=== PATIENT | male | born 1955 | race Caucasian/White ===

== ENCOUNTER → 2020-06-09 | Outpatient (CLI) | payer SELFPAY ==
[~2020-06-09] MED LIST: MORP60TA3 OR; OXYCODONE; OXYCONTIN; PERC5TAB8 OR; PERC7.5T11 PO; SOMA350T PO; [UNRECOGNIZED DRUG - OTHER]; albuterol inhaler
== END ==
LOC: M LABSMTC 10:30
PROVIDERS: ATTEND Pediatrics
DX: Z20.828 Contact with and (suspected) exposure to other viral communicable diseases (principal)

== ENCOUNTER 2021-11-23 11:35 | Inpatient (IN) | payer MEDICARE, SELFPAY ==
[~2021-11-23] VITALS: Ht 157.5 cm; Wt 70.5 kg
[2021-11-23] MEDS ORDERED: methylPREDNISolone 125MG 2ML VIAL IV ONE (12:10)
[2021-11-23] MEDS ORDERED: hydrALAZINE 20MG/ML 1ML VIAL (J0360 PER 20MG) IV STA (12:12)
[2021-11-23] MEDS: IPRATROPIUM 0.5MG/ALBUTEROL 2.5MG INH SOL UD 3ML (DUONEB) NEB PRN ×3 (12:32→12:46)
[2021-11-23 12:38] LABS: BASO % 0.1 % (0.0-1.0); EOS % 0.1 % (0.0-3.0); HEMATOCRIT 50.4 % (42.0-52.0); HEMOGLOBIN 16.6 g/dl (13.5-17.5); LYMPH # 0.8 10^3/uL (1.5-5.0); LYMPH % 11.9 % (24.0-44.0); MEAN CORPUSCULAR HEMOGLOBIN 29.1 pg (27.0-33.0); MEAN CORPUSCULAR HGB CONC 32.9 g/dl (32.0-36.5); MEAN CORPUSCULAR VOLUME 88.3 fl (80.0-96.0); MONO # 0.7 10^3/uL (0.0-0.8); MONO % 9.5 % (2.0-8.0); NEUTROPHILS # 5.4 10^3/uL (1.5-8.5); NEUTROPHILS % 78.1 % (36.0-66.0); PLATELET COUNT, AUTOMATED 154 10^3/uL (150-450); RED BLOOD COUNT 5.71 10^6/uL (4.30-6.10); WHITE BLOOD COUNT 6.9 10^3/uL (4.0-10.0)
[2021-11-23 12:38] LABS: ABG BASE EXCESS 0.4 (-2.0-2.0); ABG HCO3 25.6 MEQ/L (22.0-26.0); ABG O2 SATURATION 99.5 % (95.0-99.0); ABG PARTIAL PRESSURE CO2 43.1 mmHg (35.0-45.0); ABG PARTIAL PRESSURE O2 232.8 mmHg (75.0-100.0); ABG STANDARD HCO3 24.9 MEQ/L (22.0-26.0); ABG TOTAL CO2 26.9 MEQ/L (23.0-31.0); ABG pH (ARTERIAL) 7.391 UNITS (7.350-7.450)
[2021-11-23 13:06] LABS: ALBUMIN 3.3 GM/DL (3.2-5.2); ALT/SGPT 30 U/L (12-78); BILIRUBIN,DIRECT 0.3 MG/DL (0.0-0.2); BILIRUBIN,TOTAL 0.5 MG/DL (0.2-1.0); BLOOD UREA NITROGEN 9 MG/DL (7-18); CALCIUM LEVEL 8.9 MG/DL (8.8-10.2); CARBON DIOXIDE LEVEL 28 MEQ/L (21-32); CHLORIDE LEVEL 103 MEQ/L (98-107); CREATININE FOR GFR 0.74 MG/DL (0.70-1.30); GLOMERULAR FILTRATION RATE > 60.0 (>49); GLUCOSE, FASTING 106 MG/DL (70-100); NT-PRO BNP 101 PG/ML (<125); POTASSIUM SERUM 4.2 MEQ/L (3.5-5.1); SODIUM LEVEL 139 MEQ/L (136-145); TOTAL PROTEIN 6.9 GM/DL (6.4-8.2)
[2021-11-23] MEDS ORDERED: ALBUTEROL SULFATE 2.5 MG/0.5 ML INH NEB SOLN NEB ONE (13:50)
[2021-11-23] MEDS ORDERED: COMBIVENT RESPIMAT 100-20MCG INHALER 4GM INH ONE (14:05)
[2021-11-23] MEDS ORDERED: ACETAMINOPHEN TAB 650MG DOSE (2X325MG) PO PRN (14:45)
[2021-11-23] MEDS ORDERED: ALBU8.5H INH (14:45)
[2021-11-23] MEDS ORDERED: MOM 30ML SUSPENSION UDC PO PRN (14:45)
[2021-11-23] MEDS ORDERED: MAALOX 30 ML SUSP *UDC PO PRN (14:45)
[2021-11-23] MEDS ORDERED: IPRATROPIUM 0.5MG/ALBUTEROL 2.5MG INH SOL UD 3ML (DUONEB) NEB PRN (14:45)
[2021-11-23] MEDS ORDERED: HOME MED LIST COMPLETE! XX SCH (14:50)
[2021-11-23] MEDS ORDERED: hydrALAZINE 20MG/ML 1ML VIAL (J0360 PER 20MG) IV SCH ×2 (15:00→18:00)
[2021-11-23] MEDS ORDERED: PILL CUTTER 1 EACH XX PRN (15:00)
[2021-11-23] MEDS ORDERED: ISOVUE-370 76% 100ML VIAL As Ordered ONE (15:03)
[2021-11-23 16:06] LABS: INR 0.87; PROTHROMBIN TIME 12.2 SECONDS (12.7-14.5)
[2021-11-23 16:07] LABS: PARTIAL THROMBOPLASTIN TIME 28.1 SECONDS (25.9-37.0)
[2021-11-23 16:09] LABS: D-DIMER QUANT 438.89 ng/ml (<500)
[2021-11-23 16:18] LABS: C REACTIVE PROTEIN QUANTITATIV 8.73 MG/DL (0.00-0.30)
[2021-11-23 16:21] LABS: CK-MB VALUE MASS 2.6 NG/ML (<3.6); MB/CK RELATIVE INDEX 3.25 (< OR =4)
[2021-11-23] MEDS: methylPREDNISolone 125MG 2ML VIAL IV SCH (17:57)
[2021-11-23] MEDS ORDERED: REMDESIVIR 200 MG in NS 250 ML IV ONE (18:00)
[2021-11-23 18:23] LABS: CK-MB VALUE MASS 3.8 NG/ML (<3.6); MB/CK RELATIVE INDEX 4.04 (< OR =4)
[2021-11-23] MEDS ORDERED: SODIUM CHLORIDE 0.9% INJ 10 ML SYR IV ONE (20:00)
[2021-11-23] MEDS: IPRATROPIUM 0.5MG/ALBUTEROL 2.5MG INH SOL UD 3ML (DUONEB) NEB SCH (20:29)
[2021-11-23 21:04] LABS: CK-MB VALUE MASS 4.3 NG/ML (<3.6); MB/CK RELATIVE INDEX 4.13 (< OR =4)
[2021-11-23] MEDS: LevoFLOXacin IV 750 MG in IV 1 EA IV SCH (21:57)
[2021-11-23] MEDS: oxyCODONE 5MG TAB PO PRN (22:09)
[2021-11-23] MEDS: guaiFENesin ER 600 MG TAB PO SCH (22:10)
[2021-11-23] MEDS: ENOXAPARIN 40MG/0.4ML SYRINGE (J1650 PER 10MG) SC SCH (22:10)
[2021-11-23] MEDS: DOCUSATE SODIUM 100MG CAPSULE PO SCH (22:10)
[2021-11-23] MEDS: amLODIPine 5 MG TAB PO SCH (22:11)
[2021-11-24] MEDS ORDERED: lisinopriL 5 MG TAB PO ONE (02:00)
[2021-11-24] MEDS: methylPREDNISolone 125MG 2ML VIAL IV SCH ×3 (02:19→17:27)
[2021-11-24 02:45] VITALS: BP 180/86
[2021-11-24] MEDS: IPRATROPIUM 0.5MG/ALBUTEROL 2.5MG INH SOL UD 3ML (DUONEB) NEB SCH ×4 (03:10→19:56)
[2021-11-24] MEDS ORDERED: cloNIDine 0.1MG TABLET PO ONE (04:00)
[2021-11-24] MEDS ORDERED: **hydrALAZINE** 10 MG TAB PO PRN (04:00)
[2021-11-24 04:21] VITALS: BP 140/80
[2021-11-24 05:52] VITALS: BP 132/70
[2021-11-24 06:20] LABS: BASO % 0.2 % (0.0-1.0); HEMATOCRIT 44.6 % (42.0-52.0); HEMOGLOBIN 14.9 g/dl (13.5-17.5); LYMPH # 0.3 10^3/uL (1.5-5.0); LYMPH % 6.3 % (24.0-44.0); MEAN CORPUSCULAR HEMOGLOBIN 29.3 pg (27.0-33.0); MEAN CORPUSCULAR HGB CONC 33.4 g/dl (32.0-36.5); MEAN CORPUSCULAR VOLUME 87.8 fl (80.0-96.0); MONO # 0.2 10^3/uL (0.0-0.8); MONO % 3.3 % (2.0-8.0); NEUTROPHILS # 4.4 10^3/uL (1.5-8.5); PLATELET COUNT, AUTOMATED 156 10^3/uL (150-450); RED BLOOD COUNT 5.08 10^6/uL (4.30-6.10); WHITE BLOOD COUNT 4.9 10^3/uL (4.0-10.0)
[2021-11-24 06:56] LABS: ALBUMIN 2.8 GM/DL (3.2-5.2); ALT/SGPT 28 U/L (12-78); BILIRUBIN,TOTAL 0.2 MG/DL (0.2-1.0); BLOOD UREA NITROGEN 14 MG/DL (7-18); CALCIUM LEVEL 8.6 MG/DL (8.8-10.2); CARBON DIOXIDE LEVEL 29 MEQ/L (21-32); CHLORIDE LEVEL 102 MEQ/L (98-107); CREATININE FOR GFR 0.89 MG/DL (0.70-1.30); GLOMERULAR FILTRATION RATE > 60.0 (>49); GLUCOSE, FASTING 158 MG/DL (70-100); POTASSIUM SERUM 3.4 MEQ/L (3.5-5.1); SODIUM LEVEL 138 MEQ/L (136-145); TOTAL PROTEIN 6.4 GM/DL (6.4-8.2)
[2021-11-24] MEDS ORDERED: POTASSIUM CHLORIDE 10MEQ SR TABLET PO ONE (07:30)
[2021-11-24] MEDS: ENOXAPARIN 40MG/0.4ML SYRINGE (J1650 PER 10MG) SC SCH ×2 (08:59→20:50)
[2021-11-24] MEDS: guaiFENesin ER 600 MG TAB PO SCH ×2 (08:59→20:49)
[2021-11-24] MEDS: DOCUSATE SODIUM 100MG CAPSULE PO SCH ×2 (08:59→20:48)
[2021-11-24] MEDS: lisinopriL 5 MG TAB PO SCH (09:00)
[2021-11-24] MEDS: amLODIPine 5 MG TAB PO SCH ×2 (09:01→20:49)
[2021-11-24] MEDS: oxyCODONE 5MG TAB PO PRN ×2 (10:36→19:26)
[2021-11-24 12:00] VITALS: BP 141/80
[2021-11-24] MEDS: REMDESIVIR 100 MG in NS 250 ML IV SCH (17:34)
[2021-11-24] MEDS: LevoFLOXacin IV 750 MG in IV 1 EA IV SCH (19:25)
[2021-11-24] MEDS: SODIUM CHLORIDE 0.9% INJ 10 ML SYR IV SCH (19:27)
[2021-11-24 19:32] VITALS: BP 148/73
[2021-11-25] MEDS: IPRATROPIUM 0.5MG/ALBUTEROL 2.5MG INH SOL UD 3ML (DUONEB) NEB SCH ×2 (02:58→08:11)
[2021-11-25 04:31] VITALS: BP 132/62
[2021-11-25] MEDS: methylPREDNISolone 125MG 2ML VIAL IV SCH (05:31)
[2021-11-25] MEDS: oxyCODONE 5MG TAB PO PRN ×2 (05:46→13:22)
[2021-11-25 06:27] LABS: BASO % 0.1 % (0.0-1.0); HEMATOCRIT 44.6 % (42.0-52.0); LYMPH # 0.5 10^3/uL (1.5-5.0); LYMPH % 4.1 % (24.0-44.0); MEAN CORPUSCULAR HEMOGLOBIN 29.4 pg (27.0-33.0); MEAN CORPUSCULAR HGB CONC 33.6 g/dl (32.0-36.5); MEAN CORPUSCULAR VOLUME 87.5 fl (80.0-96.0); MONO # 0.6 10^3/uL (0.0-0.8); MONO % 5.2 % (2.0-8.0); NEUTROPHILS # 10.5 10^3/uL (1.5-8.5); PLATELET COUNT, AUTOMATED 200 10^3/uL (150-450); WHITE BLOOD COUNT 11.6 10^3/uL (4.0-10.0)
[2021-11-25 06:57] LABS: ALBUMIN 2.9 GM/DL (3.2-5.2); ALT/SGPT 39 U/L (12-78); BILIRUBIN,TOTAL 0.3 MG/DL (0.2-1.0); BLOOD UREA NITROGEN 16 MG/DL (7-18); CARBON DIOXIDE LEVEL 27 MEQ/L (21-32); CHLORIDE LEVEL 104 MEQ/L (98-107); CREATININE FOR GFR 0.85 MG/DL (0.70-1.30); GLOMERULAR FILTRATION RATE > 60.0 (>49); GLUCOSE, FASTING 151 MG/DL (70-100); POTASSIUM SERUM 3.7 MEQ/L (3.5-5.1); SODIUM LEVEL 139 MEQ/L (136-145); TOTAL PROTEIN 6.5 GM/DL (6.4-8.2)
[2021-11-25] MEDS: ENOXAPARIN 40MG/0.4ML SYRINGE (J1650 PER 10MG) SC SCH (08:49)
[2021-11-25] MEDS: DOCUSATE SODIUM 100MG CAPSULE PO SCH (08:50)
[2021-11-25] MEDS: guaiFENesin ER 600 MG TAB PO SCH (08:50)
[2021-11-25 08:51] VITALS: BP 141/78
[2021-11-25] MEDS: amLODIPine 5 MG TAB PO SCH (08:51)
[2021-11-25] MEDS: lisinopriL 5 MG TAB PO SCH (08:51)
[2021-11-25] MEDS ORDERED: predniSONE 20 MG TAB PO SCH (09:00)
[2021-11-25] MEDS ORDERED: AMLO1TAB24 PO ×2 (11:09→11:29)
[2021-11-25] MEDS ORDERED: LISI5TAB11 PO ×2 (11:09→11:29)
[2021-11-25] MEDS ORDERED: PRED10TA2 PO ×2 (11:09→11:29)
[2021-11-25] MEDS ORDERED: LEVO750T13 PO ×2 (11:11→11:29)
[2021-11-25] MEDS ORDERED: ANOR1AER PO ×2 (11:13→11:29)
[2021-11-25 12:00] VITALS: BP 144/71
[2021-11-25] MEDS: REMDESIVIR 100 MG in NS 250 ML IV SCH (12:08)
[2021-11-25] MEDS: SODIUM CHLORIDE 0.9% INJ 10 ML SYR IV SCH (13:22)
== END 2021-11-25 14:30 | disposition home or self-care (01) | DRG 190 ==
LOC: M ED 11:35 → M ED INP 14:41 → ENRESERV 21:45 → M 4MAIN 11-24 02:45
PROVIDERS: ADMIT Internal Medicine; ATTEND Internal Medicine
PROC: XW033E5 Introduction of Remdesivir Anti-infective into Peripheral Vein, Percutaneous Approach, New Technology Group 5 (ICD-10-PCS; principal; 2021-11-23)
PROC: BW24YZZ Computerized Tomography (CT Scan) of Chest and Abdomen using Other Contrast (ICD-10-PCS; 2021-11-23)
PROC: B246ZZZ Ultrasonography of Right and Left Heart (ICD-10-PCS; 2021-11-24)
DX: J44.1 Chronic obstructive pulmonary disease with (acute) exacerbation (principal); U07.1 COVID-19; M25.551 Pain in right hip; G89.29 Other chronic pain; Z87.891 Personal history of nicotine dependence; I16.0 Hypertensive urgency; Z79.891 Long term (current) use of opiate analgesic; Z88.0 Allergy status to penicillin

== ENCOUNTER → 2021-12-29 | Outpatient (CLI) | payer MEDICARE ==
[~2021-12-29] MED LIST changes: +ALBU8.5H INH; +AMLO1TAB24 PO; +ANOR1AER PO; +LEVO750T13 PO; +LISI5TAB11 PO; +PRED10TA2 PO
== END ==
LOC: M CARPUL 09:37
DX: R06.02 Shortness of breath (principal)

== ENCOUNTER → 2022-04-27 | Outpatient (CLI) | payer MEDICARE ==
[~2022-04-27] MED LIST changes: +LEVO1TAB40 PO; -LEVO750T13 PO
== END ==
LOC: M RAD 12:53
PROVIDERS: ATTEND Physician Assistant
DX: R91.8 Other nonspecific abnormal finding of lung field (principal)

== ENCOUNTER → 2022-12-30 | Outpatient (CLI) | payer MEDICARE | LOC: M RAD 12:49 | PROVIDERS: ATTEND Physician Assistant | DX: R91.8 Other nonspecific abnormal finding of lung field (principal) ==

== ENCOUNTER → 2024-01-25 | Outpatient (CLI) | payer MEDICARE | LOC: M RAD 12:55 | PROVIDERS: ATTEND Physician Assistant | DX: R91.8 Other nonspecific abnormal finding of lung field (principal) ==